=== PATIENT | male | born 2005 | race Caucasian/White ===

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

== ENCOUNTER 2024-04-13 10:54 | Observation (INO) | payer BC, OTHER ==
[2024-04-13] MEDS ORDERED: fentaNYL 50 mcg/mL 1 mL Vial ONE (15:12)
[2024-04-13 15:27] LABS: #Basophils 0.04 10x3/uL (0.0-0.2); %Basophils 0.3 % (0.0-1.0); %Eosinophils 0.5 % (0.0-10.0); %Lymphocytes 20.6 % (28.0-48.0); %Monocytes 9.1 % (0.0-4.0); Hematocrit 45.8 % (42.0-52.0); Hemoglobin 15.7 g/dL (14.0-18.0); Mean Corpuscular HGB CONC 34.3 g/dL (32.0-36.0); Mean Corpuscular Hemoglobin 27.9 pg (25.0-35.0); Mean Corpuscular Volume 81.5 fL (78.0-98.0); Mean Platelet Volume 9.3 fL (7.4-10.4); Platelet Count 347 10x3/uL (130-400); RBC Distribution Width 13.3 % (11.5-14.5); Red Blood Cell (RBC) Count 5.62 mill/uL (4.00-5.20)
[2024-04-13 15:42] LABS: Prothrombin Time 13.4 sec (12.0-14.7)
[2024-04-13 15:46] LABS: ALT (SGPT) 35 U/L (8-55); AST (SGOT) 25 U/L (10-45); Albumin 4.2 g/dL (3.5-5.0); Alkaline Phosphatase 167 U/L (50-130); Anion Gap 14 mmol/L (10-20); BUN (Urea Nitrogen) 9 mg/dL (8.4-21.0); Bilirubin, Total 0.8 mg/dL (0.2-1.2); Calc. Creatinine Clearance 0 mL/min (70-130); Carbon Dioxide 26 mmol/L (22-29); Chloride 102 mmol/L (98-107); Estimated GFR 132; Globulin 3.9 g/dL (2.4-3.5); Glucose 85 mg/dL (70-105); Protein, Total 8.1 g/dL (6.0-8.3); Sodium 138 mmol/L (136-145)
[2024-04-13] MEDS ORDERED: traMADol HCl 50 MG TAB PO PRN (16:21)
[2024-04-13] MEDS ORDERED: Ondansetron PF 4 MG/2 ML Vial SLOW IVP PRN (16:21)
[2024-04-13] MEDS ORDERED: Promethazine HCl 25 MG/ML VIAL IM PRN (16:21)
[2024-04-13] MEDS: HYDROcodone/Acetaminophen 10/325 mg Tablet PO PRN (18:08)
[2024-04-14 02:57] VITALS: BMI 28.3
[2024-04-14 04:50] LABS: #Basophils 0.06 10x3/uL (0.0-0.2); %Basophils 0.6 % (0.0-1.0); %Eosinophils 2.1 % (0.0-10.0); %Lymphocytes 30.7 % (28.0-48.0); %Monocytes 9.9 % (0.0-4.0); %Neutrophils 56.3 % (31.0-61.0); Hematocrit 43.8 % (42.0-52.0); Hemoglobin 14.6 g/dL (14.0-18.0); Mean Corpuscular HGB CONC 33.3 g/dL (32.0-36.0); Mean Corpuscular Hemoglobin 27.9 pg (25.0-35.0); Mean Corpuscular Volume 83.7 fL (78.0-98.0); Mean Platelet Volume 9.1 fL (7.4-10.4); Platelet Count 328 10x3/uL (130-400); RBC Distribution Width 13.4 % (11.5-14.5); Red Blood Cell (RBC) Count 5.23 mill/uL (4.00-5.20)
[2024-04-14] MEDS: Communication Order-Pharmacy FS SCH (07:29)
[2024-04-14] MEDS ORDERED: fentaNYL 50 mcg/mL 1 mL Vial ONE ×5 (11:52→15:41)
[2024-04-14] MEDS ORDERED: Midazolam HCl 2 mg/2 ml Vial ONE (11:52)
[2024-04-14] MEDS ORDERED: Ropivacaine 0.5% HCl/PF (150 MG/30 ML VIAL) ONE (11:52)
[2024-04-14] MEDS ORDERED: CEFAZOLIN 2 GM VIAL ONE (12:17)
[2024-04-14] MEDS ORDERED: Zolpidem Tartrate 5 MG TAB PO PRN (12:30)
[2024-04-14] MEDS ORDERED: Ropivacaine 0.2% 550 ML 550 ML NERVE BLCK SCH (12:30)
[2024-04-14] MEDS ORDERED: fentaNYL 50 mcg/mL 1 mL Vial SLOW IVP PRN (12:30)
[2024-04-14] MEDS ORDERED: Glycopyrrolate 0.2 MG/ML 5 ML SYRINGE ONE (12:34)
[2024-04-14] MEDS ORDERED: Dexamethasone 4 mg/ml Vial ONE (12:34)
[2024-04-14] MEDS ORDERED: Lidocaine 2% PF 5 ML VIAL ONE (12:34)
[2024-04-14] MEDS ORDERED: PROPOFOL 20 ML ONE ×2 (12:34→13:48)
[2024-04-14] MEDS ORDERED: Ondansetron PF 4 MG/2 ML Vial ONE (12:34)
[2024-04-14] MEDS ORDERED: Meperidine HCl/PF 25 MG (1 mL) VIAL ONE (14:36)
[2024-04-14] MEDS ORDERED: Ondansetron HCl/PF 4 MG/2 ML Vial IVP PRN (15:00)
[2024-04-14] MEDS ORDERED: fentaNYL PF 100 MCG/2 ML SYRINGE ONE (15:00)
[2024-04-14] MEDS ORDERED: Promethazine HCl 25 MG/ML VIAL IM PRN (15:00)
[2024-04-14] MEDS ORDERED: Ketorolac Tromethamine 30 MG/ML VIAL IM/IV PRN (15:00)
[2024-04-14] MEDS ORDERED: Meperidine HCl/PF 25 MG/ML VIAL IV PRN (15:00)
[2024-04-14] MEDS ORDERED: HYDROmorphone 2 MG/ML VIAL SLOW IVP PRN (15:00)
[2024-04-14] MEDS: traMADol HCl 50 MG TAB PO PRN (16:30)
[2024-04-14] MEDS: Acetaminophen 325 MG TAB PO PRN (16:30)
[2024-04-14] MEDS: CEFAZOLIN 2 GM in Sodium Chloride 0.9% 100 ML IVPB SCH (22:15)
[2024-04-15 08:13] VITALS: BP 136/85; TEMP 98.1
[2024-04-15] MEDS: HYDROcodone/Acetaminophen 10/325 mg Tablet PO PRN (08:36)
[2024-04-15] MEDS: FLU (Fluarix Triv) TS24-25(6MOS UP)/PF 45 MCG/0.5 ML Syringe IM ONE (08:37)
[2024-04-15] MEDS: traMADol HCl 50 MG TAB PO PRN (10:36)
== END 2024-04-15 11:35 | disposition home or self-care (01) ==
LOC: ERS 10:54 → SURG A 16:21
PROVIDERS: ADMIT Surgery; ATTEND Surgery
PROC: 0QSD04Z Reposition Right Patella with Internal Fixation Device, Open Approach (ICD-10-PCS; principal; 2024-04-15)
DX: S82.001A Unspecified fracture of right patella, initial encounter for closed fracture (principal); J45.909 Unspecified asthma, uncomplicated; X58.XXXA Exposure to other specified factors, initial encounter; Z98.890 Other specified postprocedural states
CPT/HCPCS: 36415; 80053; 85025; 85610; 96374; A4306; C1713; G0378; J1100; J2175; J2250; J2405; J2704; J2795; J3010

== ENCOUNTER 2024-06-14 08:24 | Outpatient (CLI) | payer BC, OTHER | END 2024-06-14 08:25 | disposition home or self-care (01) | LOC: BICRAD 08:24 | PROVIDERS: ATTEND Orthopaedic Surgery | DX: S82.091 Other fracture of right patella (principal) ==